=== PATIENT | female | born 1975 | race Caucasian/White ===

== ENCOUNTER 2024-08-09 14:20 | Emergency (ER) | payer MEDICAID ==
[~2024-08-09] VITALS: Ht 162.6 cm; Wt 88.8 kg
[2024-08-09 14:28] VITALS: BP 119/68; RESP 14; O2SAT 98
[2024-08-09 14:34] VITALS: PULSE 77
--- NOTE | 2024-08-09 14:35 | ECG ---
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
--- NOTE | 2024-08-09 14:56 | DVH ---
EXAM: XY CHEST PORTABLE TECHNIQUE: Single frontal chest radiograph CLINICAL HISTORY: LEFT SIDED CHEST PAIN COMPARISON: None Findings/Impression: Frontal chest radiograph demonstrates no acute osseous or superficial soft tissue abnormalities. The trachea is midline. The cardiac silhouette and mediastinum are within normal limits. No pneumothorax, pleural effusions, or consolidations.
--- NOTE | 2024-08-09 15:36 | ED.PDOC ---
HPI Comments Suzanna Ewing this is a 49-year-old female patient who presents to the ED deferred by GI specialist due to stabbing/burning left-sided chest pain. The pain is described as focal in left mid axillary line which radiates towards left arm, started while patient was doing minimal efforts (patient was cutting potatoes), intensity 10/10, partially relieved by ibuprofen (right now 4/10), associated with paresthesia in whole left arm, weakness which slightly improved today, cervical pain, headache and slurred speech. Patient did not notice any facial droop nor gait disturbances (patient uses walker to mobilize, but recently has not been moving that much) Denies fever, chills, palpitations, syncope, dyspnea, nausea, vomiting, diarrhea, bleeding, visual disturbances, sick contacts, recent travel and other motor or sensory deficits. Past medical history: Atrial tachycardia followed by Dr. Paul who recently completed stress test (pending result), valvular disease (patient newly remember she has for heart murmurs), chronic back pain secondary to scoliosis and herniated disc requiring walker to mobilize, PTSD, anxiety, benign breast nodule status post biopsy, uterine fibroids status post partial hysterectomy Surgical history: 2020 breast biopsy, partial hysterectomy Family history: Colon cancer in mother and grandmother, breast cancer aunt. Social history: Lives in [place] with daughter and granddaughter. Vapes tobacco. Denies current alcohol and other drug abuse Allergies [place] Home medication: Metoprolol 25 mg p.o. daily, duloxetine, hydroxyzine, ibuprofen. Chief Complaint: Chest Pain Time Seen by MD: 14:39 Primary Care Provider: BERTIN Allergies: Coded Allergies: Acetaminophen (Verified Allergy, Unknown, 08/09/24) Hydrocodone (Verified Allergy, Unknown, 08/09/24) Mode of Arrival: Ambulatory Physical Exam General Appearance: No Apparent Distress, Normal HEENT: Normal ENT Inspection, Pharynx Normal, TMs Normal Neck: Full Range of Motion, Normal, Normal Inspection, Tender Lateral Respiratory: Chest Non-Tender, Lungs Clear, No Accessory Muscle Use, No Respiratory Distress, Normal Breath Sounds Cardiovascular: No Edema, No JVD, No Gallop, Normal Peripheral Pulses, Regular Rate/Rhythm, Systolic Murmur, Other (Stabbing burning chest pain in mid axillary line) Breast Exam: Deferred Gastrointestinal: No Organomegaly, Non Tender, No Pulsatile Mass, Normal Bowel Sounds, Soft Genitalia: Deferred Pelvic: Deferred Rectal: Deferred Extremities: No calf tenderness, Normal capillary refill, Normal inspection, Normal range of motion, Non-tender, No pedal edema Neurologic: Abnormal Gait, Alert, 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 Was a procedure done?: No CP Differential Dx Differential Diagnosis: A-fib, Atrial Dysrhythmia, IN Other Differential Diagnosis Stroke X-Ray, Labs, Meds, VS Vital Signs Date Time Temp Pulse Resp B/P (MAP) Pulse Ox O2 Delivery O2 Flow Rate FiO2 08/09/24 14:34 77 08/09/24 14:28 98.4 79 14 119/68 (85) 98 Lab Test 08/09/24 16:45 08/09/24 15:20 Range/Units Lactic Acid Level Pending Troponin I High Sensitivity Pending < 3 L </=34 ng/L White Blood Count 8.5 4.4-10.8 10^3/uL Red Blood Count 4.74 4.0-5.20 10^6/uL Hemoglobin 15.1 12.2-16.2 g/dL Hematocrit 44.4 36.0-46.0 % Mean Corpuscular Volume 93.7 80.0-100.0 fL Mean Corpuscular Hemoglobin 31.8 28.0-32.0 pg Mean Corpuscular Hemoglobin Concent 33.9 32.0-36.0 g/dL Red Cell Distribution Width 13.3 11.8-14.3 % Platelet Count 412 140-450 10^3/uL Mean Platelet Volume 7.4 6.9-10.8 fL Neutrophils (%) (Auto) 56.3 37.0-80.0 % Lymphocytes (%) (Auto) 33.7 10.0-50.0 % Monocytes (%) (Auto) 8.2 0.0-12.0 % Eosinophils (%) (Auto) 0.9 0.0-7.0 % Basophils (%) (Auto) 0.9 0.0-2.0 % Neutrophils # (Auto) 4.8 1.6-8.6 10 ^3/uL Lymphocytes # (Auto) 2.9 0.4-5.4 10 ^3/uL Monocytes # (Auto) 0.7 0-1.3 10 ^3/uL Eosinophils # (Auto) 0.1 0-0.8 10 ^3/uL Basophils # (Auto) 0.1 0-0.2 10 ^3/uL Nucleated Red Blood Cells 0.1 % Prothrombin Time 10.0 9.3-11.8 sec Prothrombin Time INR 0.94 0.9-1.15 Activated Partial Thromboplast Time 28.1 24.5-34.5 SEC Sodium Level 139 136-145 mmol/L Potassium Level 4.1 3.5-5.1 mmol/L Chloride Level 105 98-107 mmol/L Carbon Dioxide Level 27 20-31 mmol/L Anion Gap 7 5-15 Blood Urea Nitrogen 10 9-23 mg/dL Creatinine 0.81 0.550-1.02 mg/dL Glomerular Filtration Rate Calc 89 >90 mL/min BUN/Creatinine Ratio 12.3 10.0-20.0 Serum Glucose 96 74-106 mg/dL Calcium Level 10.8 H 8.7-10.4 mg/dL Magnesium Level 2.2 1.6-2.6 mg/dL Total Bilirubin 0.4 0.2-1.0 mg/dL Aspartate Amino Transferase (AST) 18 13-40 U/L Alanine Aminotransferase (ALT) 29 7-40 U/L Alkaline Phosphatase 84 46-116 U/L B-Type Natriuretic Peptide 9.45 0-100 pg/mL Total Protein 7.8 5.7-8.2 g/dL Albumin 4.9 H 3.2-4.8 g/dL Thyroid Stimulating Hormone (TSH) 1.17 0.55-4.78 uIU/mL X-Ray, Labs, Meds, VS Comment Reviewed CBC, CMP, troponin (minus three), coag studies, chest x-ray and head CT, all within normal limits. Time of 1ST Reevaluation: 17:23 Reevaluation 1ST: Unchanged Patient Education/Counseling: Diagnosis, Treatment, Prognosis, Need For Follow Up Family Education/Counseling: Diagnosis, Treatment, Prognosis, Need For Follow Up Departure 1 Departure Time of Disposition: 17:23 Impression: Primary Impression: Cervical neuropathy Disposition: HOME / SELF CARE / HOMELESS Condition: Stable Referrals: ANNA KHAN MD Additional Instructions: Reviewed vital signs, laboratory results, chest x-ray EKG and head CT, all within normal limits. Ruled out acute intracranial pathology and STEMI. Probable secondary to muscles pain versus cervical spinal stenosis in patient with history of scoliosis. Patient hemodynamically stable, asymptomatic, in condition to be discharged home. Was granted under optimal medical therapy, gave her advice on healthy lifestyle habits, and follow up with PCP, Orthopedic Dr. 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 Patient will benefit from outpatient cervical MRI. Critical Care Note Critical Care Time?: No Stability Stability form required: No Heart Score Heart Score: Heart Score Response (Comments) Value History N/A 0 EKG N/A 0 Age 45-64 1 Risk Factors No known risk factors 0 Troponin N/A 0 Total 1 [place] RESIDENT Aug 09, 2024 15:36
--- NOTE | 2024-08-09 15:43 | DVH ---
EXAM: CT HEAD WITHOUT CONTRAST HISTORY: Slurred speech and left arm parasthesia COMPARISON: None TECHNIQUE: Axial images of the head were obtained and reformatted in coronal and sagittal planes. All CT scans at this medical facility are performed using dose modulation techniques as appropriate t o a performed exam including the following: Automated exposure control was utilized; adjustment of th e MA and/or KV according to patient size; and use of iterative reconstruction technique. CT Dose: CTDI volume is 52.91 mGy. Dose-length product is 863.9 mGy*cm FINDINGS: There is no evidence of acute intracranial hemorrhage, mass, mass effect midline shift. There is no h ydrocephalus or extra-axial fluid collection. Guerra-white matter differentiation is maintained. The visualized paranasal sinuses and mastoid air cells are clear. The calvarium is intact. IMPRESSION: 1. No acute intracranial process. HS:Y
[2024-08-09 15:52] LABS: Basophils # (auto) 0.1 10 ^3/uL (0-0.2); Basophils % (auto) 0.9 % (0.0-2.0); Eosinophils # (auto) 0.1 10 ^3/uL (0-0.8); Eosinophils % (auto) 0.9 % (0.0-7.0); Hematocrit 44.4 % (36.0-46.0); Hemoglobin 15.1 g/dL (12.2-16.2); Lymphocytes # (auto) 2.9 10 ^3/uL (0.4-5.4); Lymphocytes % (auto) 33.7 % (10.0-50.0); Mean Corpuscular Hemoglobin 31.8 pg (28.0-32.0); Mean Corpuscular Hgb Conc. 33.9 g/dL (32.0-36.0); Mean Corpuscular Volume 93.7 fL (80.0-100.0); Monocytes # (auto) 0.7 10 ^3/uL (0-1.3); Monocytes % (auto) 8.2 % (0.0-12.0); Neutrophils # (auto) 4.8 10 ^3/uL (1.6-8.6); Neutrophils % (auto) 56.3 % (37.0-80.0); Nucleated Red Blood Cells % 0.1 %; Platelet Count (auto) 412 10^3/uL (140-450); Red Blood Cells 4.74 10^6/uL (4.0-5.20); Red Cell Distribution Width 13.3 % (11.8-14.3); White Blood Cell 8.5 10^3/uL (4.4-10.8)
[2024-08-09 16:00] LABS: Alanine Aminotransferase 29 U/L (7-40); Alkaline Phosphatase 84 U/L (46-116); Anion Gap 7 (5-15); Aspartate Aminotransferase 18 U/L (13-40); BUN/Creatinine Ratio 12.3 (10.0-20.0); Bilirubin, Total 0.4 mg/dL (0.2-1.0); Blood Urea Nitrogen 10 mg/dL (9-23); Carbon Dioxide 27 mmol/L (20-31); Chloride 105 mmol/L (98-107); Glucose 96 mg/dL (74-106); Magnesium 2.2 mg/dL (1.6-2.6); Potassium 4.1 mmol/L (3.5-5.1); Sodium 139 mmol/L (136-145); Total Protein 7.8 g/dL (5.7-8.2)
[2024-08-09 16:01] LABS: Albumin 4.9 g/dL (3.2-4.8); Calcium 10.8 mg/dL (8.7-10.4)
[2024-08-09 16:05] LABS: INR 0.94 (0.9-1.15); Partial Thromboplastin Time 28.1 SEC (24.5-34.5)
== END 2024-08-09 20:06 | disposition home or self-care (01) ==
LOC: ER 14:28
DX: M54.12 Radiculopathy, cervical region (principal); G89.29 Other chronic pain; F41.9 Anxiety disorder, unspecified; F17.290 Nicotine dependence, other tobacco product, uncomplicated; F43.10 Post-traumatic stress disorder, unspecified; R53.1 Weakness; R51.9 Headache, unspecified; R47.81 Slurred speech; R07.9 Chest pain, unspecified; R20.2 Paresthesia of skin; Z98.890 Other specified postprocedural states; Z88.5 Allergy status to narcotic agent
CPT/HCPCS: 36415; 70450; 71045; 80053; 83605; 83735; 83880; 84443; 84484; 85025; 85610; 85730; 93005